=== PATIENT | male | born 1945 | race Caucasian/White ===

== ENCOUNTER 2017-02-13 07:58 | Day surgery (SDC) | payer OTHER ==
[2017-02-13] MEDS ORDERED: LIDOCAINE 1% 2 ML INJ ID PRN (08:33)
[2017-02-13] MEDS ORDERED: LR 1,000 ML IV ONE (08:33)
[2017-02-13] MEDS ORDERED: PROPOFOL 200 MG/20 ML VIAL ONE ×2 (09:33)
--- NOTE | 2017-02-13 09:35 | PDANEPAE ---
ANE History of Present Illness abnormal imaging study of pancreas ANE Past Medical History - Cardiovascular History Hx Hypertension: No Hx Arrhythmias: No Hx Chest Pain: No Hx Coronary Artery / Peripheral Vascular Disease: No Hx CHF / Valvular Disease: No Hx Palpitations: No Cardiovascular History Comment: pt has been seen by [employer] [facility] at [facility]- palpitations/arrhythmia. Very active pt-denies any prob. - Pulmonary History Hx COPD: No Hx Asthma/Reactive Airway Disease: No Hx Recent Upper Respiratory Infection: No Hx Oxygen in Use at Home: No Hx Sleep Apnea: No Sleep Apnea Screening Result - Last Documented: Negative - Neurologic History Hx Cerebrovascular Accident: No Hx Seizures: No Hx Dementia: No - Endocrine History Hx Diabetes: No - Renal History Hx Renal Disorders: No - Liver History Hx Hepatic Disorders: No - Neurological & Psychiatric Hx Hx Neurological and Psychiatric Disorders: No Neurological / Psychiatric History Comment: stress at home-family matters. - Cancer History Hx Cancer: No - Congenital Disorder History Hx Congenital Disorders: No - GI History Hx Gastrointestinal Disorders: Yes Gastrointestinal History Comment: Jun-pain in stomach, CT done. Mass noted in pancreas. 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 parathyroidectomy 1994;. bilat inguinal hernia w/mesh-; ANE Review of Systems - Exercise capacity METS (RN): 5 METS ANE Patient History - Allergies Allergies/Adverse Reactions: No Known Allergies Allergy (Verified 02/11/17 15:03) - Home Medications Home Medications: LORAZEPAM 02/11/17 [Last Taken 02/12/17] - NPO status NPO Since - Liquids (Date): 02/13/17 NPO Since - Liquids (Time): 06:00 NPO Since - Solids (Date): 02/12/17 NPO Since - Solids (Time): 21:30 - Smoking Hx Smoking Status: Former smoker ANE Labs/Vital Signs - Vital Signs Blood Pressure: 113/76 Heart Rate: 73 Respiratory Rate: 16 O2 Sat (%): 95 Height: 170.18 cm Weight: 63.503 kg ANE Physical Exam - Airway Neck exam: FROM Mallampati Score: Class 1 Mouth exam: normal dental/mouth exam - Pulmonary Pulmonary: no respiratory distress - Cardiovascular Cardiovascular: regular rate and rhythym - ASA Status ASA Status: II ANE Anesthesia Plan Anesthesia Plan: GA with mask
--- NOTE | 2017-02-13 09:39 | PDGENHP ---
History & Physical Chief Complaint: abnl imaging History of Present Illness: 71 year old male presents for evaluation of a pancreatic cyst Pertinent Past, Social, Family History: FaMHx: Father-gastric cancer. SoHx: + alc Relevant Physical Exam: HEENT: anicteric. CV: RRR +s1s2. Lungs: CTAB No w/r/ r. Abd: soft, nt, + BS Cardiorespiratory Assessment: ASA 2. Mall 2
[2017-02-13] MEDS ORDERED: INDOMETHACIN 50 MG SUPP PR PRN (09:41)
[2017-02-13] MEDS ORDERED: NS 500 ML IV SCH (09:45)
[2017-02-13] MEDS ORDERED: levOFLOXACIN 500 MG/DEXTROSE/100 ML BAG IV ONE (09:58)
[2017-02-13] MEDS ORDERED: ONDANSETRON 4 MG/2 ML VIAL IVP PRN (10:03)
[2017-02-13] MEDS ORDERED: NALOXONE HCL 0.4 MG/ML INJ IVP PRN (10:03)
[2017-02-13 10:48] VITALS: TEMP 97.5
--- NOTE | 2017-02-13 11:10 | POSTANESTH ---
Post Anesthetic Evaluation Cardiovascular Status: Normal, Stable Respiratory Status: Normal, Stable Level of Consciousness/Mental Status: Can Participate in Eval Pain Control: Adequate, Prn Tx Ordered Nausea/Vomiting Control: Adequate, Prn Tx Ordered Complications Possibly Related to Anesthesia: None Noted
[2017-02-13 11:24] VITALS: BP 107/68; PULSE 60; RESP 13; O2SAT 97
--- NOTE | 2017-02-13 15:06 | GPN ---
[f rep st] PROCEDURE NOTE DATE OF PROCEDURE: 02/13/2017 PROCEDURE: Esophagogastroduodenoscopy with biopsy, endoscopic ultrasound with fine needle aspiration. INDICATIONS: The patient is a 71-year-old male who had a recent CT scan and MRI which did reveal a possible cystic lesion in the head of the pancreas. He presents for further evaluation. CONSENT: Risks, benefits, and alternatives of the procedure were discussed in great detail with the patient. Risk of infection, bleeding, perforation, sedation, and pancreatitis were discussed. All questions answered and informed consent was obtained. MEDICATIONS: Propofol. Please see Anesthesiology for details. ESTIMATED BLOOD LOSS: Insignificant. ESOPHAGOGASTRODUODENOSCOPY EXAMINATION: The Olympus upper endoscope was introduced into the mouth and advanced to the esophagus. The proximal, mid, and distal esophagus were examined. In the proximal esophagus, an inlet patch was noted. The stomach was entered and closely examined, including retroflexed views of the angularis, cardia, and fundus. A large hiatal hernia was visualized. In the gastric antrum, a 5mm patch of erythema was seen with a central indentation. It did appear to be a healed ulcer? A biopsy was taken. The duodenal bulb and second portion of the duodenum were normal in appearance. ENDOSCOPIC ULTRASOUND EXAMINATION: The Olympus upper endoscope was introduced into the mouth and advanced to the second portion of the duodenum. The esophagus, stomach, and duodenum were visualized endosonographically. The pancreas was examined from the uncinate process to the tail, where the spleen was seen. The main pancreas was dilated and measured 5 mm in the head and approximately 3 mm in the body. It had a hyperechoic wall. Multiple hyperechoic foci were noted throughout the pancreas. Multiple dilated side branches were also noted. In the head of the pancreas, 2 cystic lesions were seen. One measured approximately 6 mm, the other measured approximately 9 mm. These lesions did appear to be side branch IPMN, since they appeared to communicate with the main pancreatic duct. Doppler was used to rule out intervening vessels. One transduodenal pass was made with a [employer] 25-gauge needle to the lesion. Approximately 0.5 mL of viscous fluid was aspirated and was sent for CEA. Slides were not made due to the minimal amount of fluid aspirated. This cyst did collapse on aspiration. The common bile duct was seen and without stone, stricture, or stenosis. The gallbladder was seen and no gallbladder wall thickening or debris were noted. No obvious liver lesions noted. No suspicious periportal, peripancreatic, or perigastric lymph nodes were appreciated. IMPRESSION: 1. Parenchymal changes in the pancreas. 2. 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 RECOMMENDATIONS: 1. MRI in 1 year. 2. Await biopsy results. /[id number]/MODL MTDD
== END 2017-02-13 12:10 | disposition home or self-care (01) ==
LOC: FSGY 07:58
PROVIDERS: ATTEND Internal Medicine Gastroenterology
PROC: 0F9G4ZX Drainage of Pancreas, Percutaneous Endoscopic Approach, Diagnostic (ICD-10-PCS; principal; 2017-02-13 09:00)
PROC: 0DB68ZX Excision of Stomach, Via Natural or Artificial Opening Endoscopic, Diagnostic (ICD-10-PCS; principal; 2017-02-13 09:00)
DX: K86.2 Cyst of pancreas (principal); K31.89 Other diseases of stomach and duodenum; Z80.0 Family history of malignant neoplasm of digestive organs
CPT/HCPCS: J1956; J2704

== ENCOUNTER → 2017-06-10 | Outpatient (CLI) | payer OTHER | LOC: BMCIMAGING 10:39 | PROVIDERS: ATTEND Internal Medicine Endocrinology, Diabetes & Metabolism | DX: Z12.39 Encounter for other screening for malignant neoplasm of breast (principal) ==